=== PATIENT | female | born 1955 | race Caucasian/White ===

== ENCOUNTER → 2020-09-21 | Day surgery (SDC) | payer MEDICARE ==
[~2020-09-21] VITALS: Ht 167.6 cm; Wt 90.7 kg
[~2020-09-21] MED LIST: ABILIFY5 MG PO; BACLOFEN 20MG T20 MG PO; BUSPIRONE HCL7.5 MG PO; CALCIUM + VITA1 EACH PO; CLONAZEPAM0.5 MG PO; CRESTOR10 MG PO; CRESTOR5 MG PO; CYMBALTA60 MG PO; DEXILANT60 MG PO; HYDROCODON-ACE1 EAC6 PO; INDERAL XL80 MG PO; REQUIP1 MG PO; TRAZODONE 100M100 MG PO; VASCEPA1 GM PO; VOLTAREN **OUT75 MG PO; WELLBUTRIN XL300 MG PO; WELLBUTRIN100 MG PO
[2020-09-21 10:14] LABS: HGB 15.1 g/dl (12.5-16.0); MCH 31.9 pg (25.0-31.0); MCHC 34.3 g/dL (32.0-36.0); MPV 9.2 fL (6.0-9.5); RBC 4.73 M/uL (4.20-5.40); WBC 8.3 K/uL (4.0-10.5)
[2020-09-21 10:28] LABS: ALBUMIN 4.4 g/dL (3.4-5.0); BILIRUBIN - TOTAL 0.7 mg/dL (0.2-1.0); BUN/CREAT RATIO (CALC) 28.1 RATIO; CREATININE 0.57 mg/dL (0.51-0.95); GLOBULIN (CALCULATION) 3.3 g/dL; POTASSIUM 3.4 mmol/L (3.5-5.1); TOTAL PROTEIN 7.7 g/dL (6.4-8.2)
== END | disposition home or self-care (01) ==
LOC: FAS 08:56
PROVIDERS: Surgery
DX: K22.2 Esophageal obstruction (principal); K58.0 Irritable bowel syndrome with diarrhea; K31.89 Other diseases of stomach and duodenum; G25.81 Restless legs syndrome; K21.9 Gastro-esophageal reflux disease without esophagitis; Q63.1 Lobulated, fused and horseshoe kidney; G47.30 Sleep apnea, unspecified; M19.90 Unspecified osteoarthritis, unspecified site; E78.00 Pure hypercholesterolemia, unspecified; M81.0 Age-related osteoporosis without current pathological fracture; M06.9 Rheumatoid arthritis, unspecified; Z85.3 Personal history of malignant neoplasm of breast; Z87.891 Personal history of nicotine dependence; Z79.82 Long term (current) use of aspirin; Z79.899 Other long term (current) drug therapy
CPT/HCPCS: 36415; 80053; 88305; C1726; J2704; J7120